=== PATIENT | male | born 1985 | race Caucasian/White ===

== ENCOUNTER 2023-04-15 00:13 | Inpatient (IN) | payer BC ==
[~2023-04-15] VITALS: Ht 175.3 cm; Wt 95.3 kg
--- NOTE | 2023-04-15 00:35 | NUR ---
BIBSELF WITH CC OF WHOLE ABDOMINAL PAIN SCALE OF 9/10. PT HAS HX OF PANCREATIC CYST. PATIENT IS AMBULATORY. ABLE TO MAKE NEEDS KNOWN. PLACED COMFORTABLY IN BED. VITALS CHECKED.
--- NOTE | 2023-04-15 00:40 | NUR ---
SEEN BY MD AT BEDSIDE
--- NOTE | 2023-04-15 00:55 | NUR ---
20GA TO RIGHT FOREARM ESTABLISHED; BLOOD WORK COLLECTED, GIVEN TO WAREHOUSE LEAD
[2023-04-15] MEDS ORDERED: IV NS 0.9% 500 ML BAG IV ONE (01:00)
[2023-04-15] MEDS ORDERED: ONDANSETRON HCL/PF 4 MG/2 ML VIAL ONE (01:01)
[2023-04-15] MEDS ORDERED: MORPHINE SULFATE INJ 2 MG/ML DISP.SYRIN ONE ×2 (01:02→03:51)
--- NOTE | 2023-04-15 01:05 | NUR ---
PT TAKEN TO CT W/ TECH
[2023-04-15 01:12] LABS: BASOPHILS # (AUTO) 0.2 K/uL (0.0-0.2); BASOPHILS % (AUTO) 1.4 % (0.0-2.0); EOSINOPHILS % (AUTO) 0.1 % (0.0-6.0); HEMATOCRIT 44 % (39-51); HEMOGLOBIN 14.4 g/dL (13.5-17.5); LYMPHOCYTES # (AUTO) 0.9 K/uL (0.8-4.8); LYMPHOCYTES % (AUTO) 8.8 % (20.0-44.0); MEAN CORPUSCULAR HGB CONC 32 g/dl (31.0-36.0); MEAN CORPUSCULAR VOLUME 81 fL (80-96); MONOCYTES # (AUTO) 0.7 K/uL (0.1-1.30); MONOCYTES % (AUTO) 6.6 % (2.0-12.0); NEUTROPHILS # (AUTO) 8.9 K/uL (1.8-8.9); NEUTROPHILS % (AUTO) 83.1 % (43.0-81.0); PLATELET COUNT (AUTO) 237 K/uL (150-450); RED BLOOD CELL COUNT(AUTO) 5.49 MIL/uL (4.5-6.0); WHITE BLOOD COUNT (AUTO) 10.7 K/uL (4.3-11.0)
--- NOTE | 2023-04-15 01:16 | NUR ---
PT BACK FROM CT
[2023-04-15 01:19] LABS: CALCIUM, SERUM 9.9 mg/dL (8.5-10.1); POTASSIUM 3.1 mmol/L (3.5-5.1)
[2023-04-15 01:24] LABS: ALBUMIN 4.6 g/dL (3.4-5.0); BILIRUBIN,DIRECT 0.3 mg/dL (0.0-0.2); BILIRUBIN,TOTAL 1.9 mg/dL (0.2-1.0); TOTAL PROTEIN, SERUM 9.1 g/dL (6.4-8.2)
[2023-04-15] MEDS ORDERED: MORPHINE SULFATE INJ 2 MG/ML DISP.SYRIN IV ONE ×2 (01:30→04:00)
[2023-04-15] MEDS ORDERED: ONDANSETRON HCL/PF 4 MG/2 ML VIAL IV ONE (01:30)
--- NOTE | 2023-04-15 03:48 | NUR ---
[facility] SWAB COLLECTED AND SENT TO LAB. PATIENT'S BELONGINGS LIST DONE.
[2023-04-15] MEDS ORDERED: MAG HYDROX/AL HYDROX/SIMETH 30 ML UDC PO PRN (05:30)
[2023-04-15] MEDS ORDERED: ACETAMINOPHEN 325 MG TABLET PO PRN (05:30)
[2023-04-15] MEDS ORDERED: IV NS 0.9% 1,000 ML IV PRN ×2 (05:30→10:31)
[2023-04-15] MEDS ORDERED: Z GUARD REMEDY 4 OZ OINT TP PRN (05:30)
[2023-04-15] MEDS ORDERED: MAGNESIUM HYDROXIDE 30 ML UDC PO PRN (05:30)
[2023-04-15] MEDS ORDERED: ONDANSETRON HCL/PF 4 MG/2 ML VIAL IVP PRN (05:30)
--- NOTE | 2023-04-15 05:54 | NUR ---
REPORT GIVEN TO INES CARLSON. PT GOING TO 310.
--- NOTE | 2023-04-15 06:00 | NUR ---
URINE COLLECTED, SENT TO LAB
[2023-04-15] MEDS ORDERED: SERT50TA PO (06:11)
[2023-04-15] MEDS ORDERED: HYDR4TAB4 PO (06:11)
[2023-04-15] MEDS ORDERED: PANT40TA49 PO (06:11)
--- NOTE | 2023-04-15 06:45 | NUR ---
PT TRANSPORTED VIA WHEELCHAIR ACCOMPANIED BY EMT
[2023-04-15] MEDS ORDERED: POTASSIUM CHLORIDE 20 MEQ POWDER PACKET PO ONE (07:00)
[2023-04-15 07:59] LABS: BILIRUBIN,URINE 2+ (NEGATIVE); COLOR,URINE DARK YELLOW (YELLOW); LEUKOCYTE ESTERASE ,URINE NEGATIVE (NEGATIVE); NITRITE, URINE NEGATIVE (NEGATIVE); PROTEIN,URINE 2+ mg/dl (NEGATIVE); UGLUCOSE NEGATIVE (NEGATIVE)
[2023-04-15 08:21] LABS: RBC,URINE NONE SEEN /HPF (0-2)
[2023-04-15 08:22] LABS: BACTERIA,URINE Rare /HPF (None Seen); MUCUS,URINE Many /LPF (None Seen); SQUAMOUS EPITHELIAL CELL,UR Rare /HPF (None Seen); WBC,URINE 0-2 /HPF (0-3)
[2023-04-15 08:30] VITALS: BP 124/91
[2023-04-15] MEDS: PANTOPRAZOLE 40 MG VIAL IV SCH (09:01)
[2023-04-15] MEDS: MORPHINE SULFATE INJ 2 MG/ML DISP.SYRIN IV PRN ×3 (09:02→17:33)
[2023-04-15] MEDS ORDERED: CEFOTAXIME SODIUM 2 G in IV D5W 50 ML IV SCH (13:00)
[2023-04-15] MEDS: ZOSYN IVPB 3.375 G in IV D5W 50ml IV SCH ×3 (13:21→23:00)
--- NOTE | 2023-04-15 18:00 | NUR ---
RN CLOSING NOTE PATIENT RESTING IN BED. HIS AT BEDSIDE, IN NO ACUTE DISTRESS OBSERVED. RESPIRATORY EVEN AND UNLABORED IN ROOM AIR, NO SOB OR DESATURATION NOTED. SKIN IS WARM TO TOUCH KEEP CLEAN/DRY. PATIENT C/O ABDOMINAL PAIN AND GIVEN MORPHINE 4MG, AND TYLENOL 650 MG FOR HEADACHE. PATIENT REPOTS RELIEF THE ABD PAIN AND HEADACHE. KEPT ELEVATED HOB FOR ENSURE AIRWAY/ASPIRATION PRECAUTION. BED ALARM IS ON AT ALL TIMES FOR SAFETY. CALL LIGHT WITHIN REACH, WILL [employer] DRIVER.
[2023-04-15 18:40] VITALS: BP 196/112
--- NOTE | 2023-04-15 19:00 | NUR ---
RN OPENING NOTE RECEIVED PT AWAKE IN BED. PT IS A/O X 4, ABLE TO MAKE NEEDS KNOWN. PT IS IN RA TOLERATING WELL, BREATHING EVEN AND UNLABORED @ THIS TIME. PT IV PRESENT ON THE RIGHT FOREARM RUNNING NS @125 MLS/HR, PATENT, INTACT AND FLUSHES WELL WITH NO S&SX OF INFILTRATION @ SITE NOTED. SAFETY MEASURE IS IN PLACE. BED IN LOWEST & LOCKED POSITION. SIDE RAILS UP X 2. BED SIDE TABLE & CALL LIGHT IS EASY REACH. BED ALARM IS ON. WILL CONTINUE TO MONITOR PT ACCORDINGLY.
[2023-04-15 20:00] VITALS: BP 133/91
[2023-04-15] MEDS: MORPHINE SULFATE INJ 4 MG/ML DISP.SYRIN IV PRN (22:39)
[2023-04-16] MEDS: MORPHINE SULFATE INJ 4 MG/ML DISP.SYRIN IV PRN ×3 (02:41→11:07)
[2023-04-16] MEDS: ZOSYN IVPB 3.375 G in IV D5W 50ml IV SCH ×2 (05:00→12:00)
[2023-04-16 06:22] LABS: BASOPHILS % (AUTO) 0.6 % (0.0-2.0); EOSINOPHILS % (AUTO) 2.1 % (0.0-6.0); HEMATOCRIT 36 % (39-51); LYMPHOCYTES # (AUTO) 1.8 K/uL (0.8-4.8); LYMPHOCYTES % (AUTO) 28.5 % (20.0-44.0); MEAN CORPUSCULAR HGB CONC 33 g/dl (31.0-36.0); MEAN CORPUSCULAR VOLUME 81 fL (80-96); MONOCYTES # (AUTO) 0.5 K/uL (0.1-1.30); MONOCYTES % (AUTO) 8.3 % (2.0-12.0); NEUTROPHILS # (AUTO) 3.8 K/uL (1.8-8.9); NEUTROPHILS % (AUTO) 60.5 % (43.0-81.0); PLATELET COUNT (AUTO) 181 K/uL (150-450); RED BLOOD CELL COUNT(AUTO) 4.49 MIL/uL (4.5-6.0); WHITE BLOOD COUNT (AUTO) 6.3 K/uL (4.3-11.0)
--- NOTE | 2023-04-16 06:34 | NUR ---
RN CLOSING NOTE PT IS AWAKE & RESTING COMFORTABLY IN BED. PT A/OX 4 RESPONSIVE & FOLLOWS VERBAL COMMAND. PT IS IN RA W/ NO S&SX OF RESPIRATORY DISTRESS @ THIS TIME. PT IV PRESENT ON RIGHT FOREARM #20G RUNNING NS @125 MLS/HR, PATENT, INTACT & FLUSHES WELL WW/ NO S&SX OF INFILTRATION @ SITE NOTED. SAFETY MEASURES IS IN PLACE. BED IN LOWEST & LOCKED POSITION. SIDE RAILS UP X 2. BEDSIDE TABLE & CALL LIGHT IS EASY REACH. BED ALARM IS ON. WILL ENDORSE TO THE NEXT SHIFT FOR CONTINUITY OF CARE.
[2023-04-16 07:04] LABS: CALCIUM, SERUM 8.7 mg/dL (8.5-10.1); CREATININE 0.9 mg/dL (0.6-1.3); MAGNESIUM 1.8 mg/dL (1.8-2.4); PHOSPHORUS 3.7 mg/dL (2.5-4.9); POTASSIUM 3.9 mmol/L (3.5-5.1)
--- NOTE | 2023-04-16 07:57 | NUR ---
MS RN OPENING NOTE RECEIVED PATIENT SLEEPING IN BED, EASILY AWAKEN, PT IS A/OX 4, COOPERATIVE. ON ROOM AIR WITHOUT ANY S/SX OF RESPIRATORY DISTRESS. IV ACCESS ON RIGHT FOREARM #20G RUNNING NS @125 MLS/HR, PATENT, INTACT & FLUSHING WELL, NO S/SX INFILTRATION NOTED LIKE REDNESS OR PAIN ON SITE. PATIENT IS COMPLAINING OF 7/10 PAIN IN THE WHOLE ABDOMINAL AREA, PAIN DECREASED AFTER MORPHINE DOSE AT 0649. DENIED N/V. EDUCATED ABOUT ADVANCING DIET BUT PATIENT MENTIONED HE ISN'T READY YET. SAFETY MEASURES IN PLACE: BED IN LOWEST & LOCKED POSITION. SIDE RAILS UP X 2. BEDSIDE TABLE & CALL LIGHT WITHIN EASY REACH. PATIENT IS ORIENTED TO STAFF. WILL CONTINUE TO MONITOR.
[2023-04-16 08:00] VITALS: BP 115/70
[2023-04-16] MEDS: PANTOPRAZOLE 40 MG VIAL IV SCH (08:16)
[2023-04-16] MEDS ORDERED: CIPR500T5 PO (10:07)
--- NOTE | 2023-04-16 11:11 | NUR ---
PAIN MANAGEMENT - PATIENT COMPLAINING OF 7-8 WHOLE ABDOMINAL PAIN, ADMINISTERED MORPHINE 4MG IVP ORDERED, VS STABLE. WILL CONTINUE TO MONITOR.
--- NOTE | 2023-04-16 12:10 | NUR ---
RN NOTES - PATIENT REFUSED IV ZOSYN DESPITE EXPLANATION OF BENEFITS. REFUSED IV FLUIDS AT THE MOMENT
--- NOTE | 2023-04-16 12:36 | NUR ---
MS SENIOR ANALYTIC CONSULTANT NOTES PATIENT DISCHARGED TO HOME IN STABLE CONDITION, AOX4, ABLE TO VERBALIZE NEEDS. STABLE ON ROOM AIR WITHOUT ANY ACUTE DISTRESS NOTED. PAIN IS CONTROLLED AT THE MOMENT. PATIENT IS AMBULATORY WITH STEADY GAIT. VITAL SIGNS TAKEN, RECORDED, STABLE. ALL BELONGINGS ACCOUNTED FOR, FORM SIGNED. DISCHARGE INSTRUCTIONS GIVEN TO THE PATIENT. SKIN IS INTACT. PATIENT LEFT THE UNIT AT AROUND 1235, AMBULATORY, ACCOMPANIED BY BRITTANY ROTH, PATIENT IS GOING TO BE PICKED UP BY HIS AT THE LOBBY. MD AND CHARGE NURSE AWARE OF THE DC.
[2023-04-17] MEDS ORDERED: PANTOPRAZOLE 40 MG/PACK PACK PO SCH (09:00)
== END 2023-04-16 12:35 | disposition home or self-care (01) | DRG 439 ==
LOC: ER 00:20 → MED 05:46
PROVIDERS: ADMIT Internal Medicine; ATTEND Internal Medicine
DX: K85.90 Acute pancreatitis without necrosis or infection, unspecified (principal); K86.2 Cyst of pancreas; K86.1 Other chronic pancreatitis; I10 Essential (primary) hypertension; Z90.49 Acquired absence of other specified parts of digestive tract; F10.10 Alcohol abuse, uncomplicated; Y90.9 Presence of alcohol in blood, level not specified
CPT/HCPCS: 36415; 74181-TC; 80048-TC; 80076-TC; 81001; 83605-TC; 83690-TC; 83735-TC; 84100-TC; 85025-TC; 87040-TC; 87081-TC; A4223; C9113; G0378; J2270; J2405; J2543; J7030; J7060